=== PATIENT | male | born 1965 | race Hispanic/Latino ===

== ENCOUNTER 2017-10-03 09:38 | Emergency (ER) | payer OTHER ==
[~2017-10-03] VITALS: Ht 165.1 cm; Wt 65.0 kg
[2017-10-03] MEDS ORDERED: METFORMIN500 MG PO (09:44)
[2017-10-03] MEDS ORDERED: ZESTRIL10 M1 PO (09:45)
[2017-10-03] MEDS ORDERED: NAPROSYN500 MG PO (10:06)
[2017-10-03] MEDS ORDERED: LISINOPRIL20 M1 PO (10:14)
[2017-10-03 10:20] VITALS: BP 129/74
== END 2017-10-03 10:20 | disposition home or self-care (01) | DRG 605 ==
LOC: ED 09:38
DX: S60.221A Contusion of right hand, initial encounter (principal); W22.8XXA Striking against or struck by other objects, initial encounter; Y93.89 Activity, other specified; Y92.89 Other specified places as the place of occurrence of the external cause

== ENCOUNTER 2023-04-16 10:17 | Emergency (ER) | payer OTHER ==
[~2023-04-16] VITALS: Ht 165.1 cm; Wt 70.4 kg
[~2023-04-16 10:17] MED LIST: LISINOPRIL20 M1 PO; METFORMIN500 MG PO; NAPROSYN500 MG PO; ZESTRIL10 M1 PO
[2023-04-16 10:35] VITALS: BP 140/76
[2023-04-16 10:45] VITALS: BP 137/79
[2023-04-16 11:00] VITALS: BP 130/77
[2023-04-16] MEDS ORDERED: AMOX/K CLAV875 M1 PO (11:14)
[2023-04-16 11:15] VITALS: BP 128/76
[2023-04-16 11:30] VITALS: BP 126/72
[2023-04-16 13:00] VITALS: BP 126/72
== END 2023-04-16 13:00 | disposition home or self-care (01) | DRG 605 ==
LOC: ED 10:17
DX: S60.512A Abrasion of left hand, initial encounter (principal); I10 Essential (primary) hypertension; E11.9 Type 2 diabetes mellitus without complications; X58.XXXA Exposure to other specified factors, initial encounter; Y92.009 Unspecified place in unspecified non-institutional (private) residence as the place of occurrence of the external cause; Y99.0 Civilian activity done for income or pay; Z79.84 Long term (current) use of oral hypoglycemic drugs